=== PATIENT | male | born 1960 | race African-American/Black ===

== ENCOUNTER 2017-08-16 11:40 | Emergency (ER) | payer MEDICAID, OTHER ==
[~2017-08-16] VITALS: Ht 188 cm; Wt 95.0 kg
[~2017-08-16 11:40] MED LIST: ASPI-1158 PO; DIPHENHYDRAMINE PO; HYDR25TA PO; IBUPROFEN PO; LISI-604; SIMV20TA2 PO
[2017-08-16 12:34] VITALS: BP 139/84
[2017-08-16] MEDS ORDERED: ACETAMINOPHEN 325MG TABLET ONE (12:39)
[2017-08-17] MEDS ORDERED: AMLO10TA80 PO (23:52)
== END 2017-08-16 19:50 | disposition left against medical advice (07) ==
LOC: ER 12:36
DX: R05 Cough (principal); Z53.21 Procedure and treatment not carried out due to patient leaving prior to being seen by health care provider

== ENCOUNTER 2017-08-17 08:41 | Inpatient (IN) | payer MEDICAID ==
[~2017-08-17] VITALS: Ht 188 cm; Wt 95.3 kg
[2017-08-17] MEDS ORDERED: ACETAMINOPHEN 325MG TABLET ONE (09:04)
[2017-08-17] MEDS ORDERED: LORAZEPAM 2MG/ML CPJ IV ONE (09:45)
[2017-08-17] MEDS ORDERED: KETOROLAC 30MG/ML VIAL IV ONE (09:45)
[2017-08-17] MEDS ORDERED: ONDANSETRON HCL 4MG/2ML VIAL IV ONE (09:45)
[2017-08-17] MEDS ORDERED: SODIUM CHLORIDE 0.9% 1000ML BAG (SEPSIS BOLUS) IV ONE (09:45)
[2017-08-17 10:11] LABS: HEMATOCRIT. 41.9 % (42.0-52.0); HEMOGLOBIN. 14.8 g/dL (14.0-18.0); MEAN CORPUSCULAR HEMOGLOBIN 31.5 pg (28.0-32.0); MEAN CORPUSCULAR VOLUME 89.1 fL (80.0-94.0); PLATELET 158 x1000/uL (130-400); RED CELL DISTRIBUTION WIDTH 14.1 % (11.6-14.6)
[2017-08-17 10:17] LABS: CLARITY URINE CLEAR (CLEAR); COLOR URINE DARK YELLOW (YELLOW); KETONES URINE TRACE (NEGATIVE); LEUKOCYTE ESTERASE URINE NEGATIVE (NEGATIVE); NITRITE URINE NEGATIVE (NEGATIVE); OCCULT BLOOD URINE TRACE (NEGATIVE); PROTEIN URINE 2+ (NEGATIVE); SPECIFIC GRAVITY URINE 1.024 (1.005-1.030)
[2017-08-17 10:17] LABS: CHLORIDE 97 mEq/L (98-107)
[2017-08-17 10:19] LABS: PROTHROMBIN TIME 10.7 sec (9.4-11.6)
[2017-08-17 10:22] LABS: ETHANOL BLOOD < 10 mg/dL
[2017-08-17 10:49] LABS: *AMPHETAMINES SCREEN URINE NEGATIVE (NEGATIVE); *BARBITURATES SCREEN URINE NEGATIVE (NEGATIVE); *BENZODIAZEPINES SCREEN URINE NEGATIVE (NEGATIVE); *COCAINE SCREEN URINE NEGATIVE (NEGATIVE); METHADONE URINE SCREEN NEGATIVE (NEGATIVE); OPIATES URINE SCREEN NEGATIVE (NEGATIVE)
[2017-08-17 10:50] LABS: CANNABINOID URINE SCREEN NEGATIVE (NEGATIVE); PHENCYCLIDINE URINE SCREEN NEGATIVE (NEGATIVE)
[2017-08-17 10:54] LABS: PLATELET ESTIMATE NORMAL
[2017-08-17] MEDS ORDERED: AZITHROMYCIN 500 MG in DEXT 5% WATER 250 ML IV SCH (11:15)
[2017-08-17] MEDS ORDERED: CEFTRIAXONE 1 G PREMIX 50 ML IV ONE (11:15)
[2017-08-17] MEDS ORDERED: LORAZEPAM 2MG/ML CPJ IV PRN (12:00)
[2017-08-17] MEDS ORDERED: MORPHINE SULFATE 4 MG/ML CPJ (NOT FOR IM USE) IV PRN (12:00)
[2017-08-17] MEDS ORDERED: CLONIDINE 0.1MG TABLET PO PRN (12:00)
[2017-08-17 13:16] LABS: CHLORIDE 98 mEq/L (98-107)
[2017-08-17 13:20] LABS: CREATINE KINASE 146 IU/L (39-308); CREATINE KINASE MB FRACTION < 0.5 ng/mL (0.5-3.6); TROPONIN I < 0.02 ng/mL (0.00-0.04)
[2017-08-17] MEDS: LORAZEPAM 0.5MG TABLET PO PRN (17:02)
[2017-08-17] MEDS ORDERED: ONDANSETRON HCL 4MG/2ML VIAL IV PRN (20:00)
[2017-08-17] MEDS ORDERED: HYDROCODONE/ACETAMINOPHEN 5/325MG TABLET PO PRN (20:00)
[2017-08-17] MEDS ORDERED: DOCUSATE SODIUM 100MG CAPSULE PO PRN (20:00)
[2017-08-17] MEDS ORDERED: IPRATROPIUM/ALBUTEROL 0.5-3(2.5)MG/3ML NEB INH PRN (20:00)
[2017-08-17] MEDS ORDERED: MAGNESIUM/ALUMINUM HYDROXIDE/SIMETHICONE 30ML UDC PO PRN (20:00)
[2017-08-17] MEDS ORDERED: GUAIFENESIN 200MG/10ML SUGAR FREE UDC PO PRN (20:00)
[2017-08-17] MEDS ORDERED: NA PHOS,M-B/NA PHOS,DI-BA ENEMA 118ML PR PRN (20:00)
[2017-08-17 21:30] VITALS: BP 132/84
[2017-08-17 22:00] VITALS: BP 132/84
[2017-08-17] MEDS ORDERED: SODIUM CHLORIDE 0.45% 1,000 ML IV SCH (23:00)
[2017-08-17] MEDS ORDERED: AMLO10TA80 PO (23:52)
[2017-08-18] VITALS: BP 105/66
[2017-08-18] MEDS: ACETAMINOPHEN 325MG TABLET PO PRN ×3 (00:39→20:40)
[2017-08-18] MEDS: LEVOFLOXACIN 500MG PREMIX 100 ML IV SCH (01:39)
[2017-08-18 04:00] VITALS: BP 108/71
[2017-08-18] MEDS: LORAZEPAM 0.5MG TABLET PO PRN (06:29)
[2017-08-18 07:35] LABS: BASOPHILS % 0.3 % (0.0-2.0); EOSINOPHILS % 0.1 % (0.0-5.0); HEMATOCRIT. 41.5 % (42.0-52.0); HEMOGLOBIN. 14.4 g/dL (14.0-18.0); LYMPHOCYTES % 14.9 % (20.0-50.0); MEAN CORPUSCULAR HEMOGLOBIN 31.3 pg (28.0-32.0); MEAN CORPUSCULAR VOLUME 90.1 fL (80.0-94.0); MEAN PLATELET VOLUME 7.5 fl (7.4-10.4); MONOCYTES % 6.3 % (2.0-8.0); NEUTROPHILS % 78.4 % (40.0-76.0); PLATELET 158 x1000/uL (130-400)
[2017-08-18 08:00] VITALS: BP 109/66
[2017-08-18 08:18] LABS: CHLORIDE 99 mEq/L (98-107)
[2017-08-18 08:35] LABS: HDL CHOLESTEROL 30 mg/dL (40-59); LDL CHOLESTEROL 47 mg/dL (5-100)
[2017-08-18] MEDS: ASPIRIN 81MG EC TABLET PO SCH (08:48)
[2017-08-18] MEDS: ENOXAPARIN 40MG/0.4ML SYR SUBCUT SCH (08:48)
[2017-08-18] MEDS: HYDROCHLOROTHIAZIDE 25MG TABLET PO SCH (08:52)
[2017-08-18] MEDS: AMLODIPINE 10MG TABLET PO SCH (08:52)
[2017-08-18] MEDS ORDERED: IBUPROFEN PO SCH (09:00)
[2017-08-18] MEDS ORDERED: MEDICATION NOT ON FORMULARY EA (Simvastatin (Zocor) 20 MG) PO SCH (09:00)
[2017-08-18] MEDS ORDERED: POTASSIUM CHLORIDE 20MEQ TABLET SR PO NR ×2 (10:00→15:52)
[2017-08-18] MEDS ORDERED: LORAZEPAM 2MG/ML CPJ IV PRN (10:15)
[2017-08-18] MEDS ORDERED: CHLORDIAZEPOXIDE 25MG CAPSULE PO PRN (10:15)
[2017-08-18] MEDS ORDERED: LEVOFLOXACIN 500MG PREMIX 100 ML IV SCH ×2 (10:30)
[2017-08-18] MEDS ORDERED: DIPHENHYDRAMINE 25MG CAPSULE PO PRN (11:00)
[2017-08-18 12:00] VITALS: BP 110/67
[2017-08-18] MEDS ORDERED: FOLIC ACID 1 MG, THIAMINE HCL 100 MG, MVI, ADULT NO.1 10 ML in DEXTROSE 5% WATER 1,000 ML IV SCH ×4 (12:00)
[2017-08-18 16:00] VITALS: BP 102/66
[2017-08-18 20:00] VITALS: BP 107/68
[2017-08-18] MEDS: ATORVASTATIN CALCIUM 10MG TABLET PO SCH (20:39)
[2017-08-18] MEDS: GUAIFENESIN 600MG ER TABLET PO SCH (20:39)
[2017-08-19] VITALS: BP 106/71
[2017-08-19] MEDS: LEVOFLOXACIN 500MG PREMIX 100 ML IV SCH (01:27)
[2017-08-19 04:00] VITALS: BP 106/85
[2017-08-19] MEDS: ACETAMINOPHEN 325MG TABLET PO PRN ×2 (04:48→15:58)
[2017-08-19 08:00] VITALS: BP 128/84
[2017-08-19 08:26] LABS: BASOPHILS % 0.3 % (0.0-2.0); EOSINOPHILS % 1.6 % (0.0-5.0); HEMATOCRIT. 38.5 % (42.0-52.0); HEMOGLOBIN. 13.2 g/dL (14.0-18.0); MEAN CORPUSCULAR HEMOGLOBIN 30.9 pg (28.0-32.0); MEAN CORPUSCULAR VOLUME 90.6 fL (80.0-94.0); MEAN PLATELET VOLUME 7.6 fl (7.4-10.4); MONOCYTES % 10.9 % (2.0-8.0); NEUTROPHILS % 70.2 % (40.0-76.0); PLATELET 171 x1000/uL (130-400); RED BLOOD CELL COUNT 4.25 mill/uL (4.7-6.1); RED CELL DISTRIBUTION WIDTH 14.2 % (11.6-14.6)
[2017-08-19] MEDS: ASPIRIN 81MG EC TABLET PO SCH (08:54)
[2017-08-19] MEDS: GUAIFENESIN 600MG ER TABLET PO SCH ×2 (08:55→21:12)
[2017-08-19] MEDS: FOLIC ACID 1MG TABLET PO SCH (08:55)
[2017-08-19] MEDS: MULTIVITAMINS,THER W-MINERALS TABLET PO SCH (08:55)
[2017-08-19] MEDS: THIAMINE HCL 100MG TABLET PO SCH (08:55)
[2017-08-19] MEDS: AMLODIPINE 10MG TABLET PO SCH (08:56)
[2017-08-19] MEDS: ENOXAPARIN 40MG/0.4ML SYR SUBCUT SCH (08:56)
[2017-08-19] MEDS: HYDROCHLOROTHIAZIDE 25MG TABLET PO SCH (08:56)
[2017-08-19 08:59] LABS: CHLORIDE 100 mEq/L (98-107)
[2017-08-19 12:00] VITALS: BP 120/75
[2017-08-19] MEDS: DIPHENHYDRAMINE 50MG/ML VIAL IV PRN (15:59)
[2017-08-19 16:00] VITALS: BP 109/72
[2017-08-19] MEDS: METRONIDAZOLE 500 MG PREMIX 100 ML IV SCH (18:10)
[2017-08-19 20:00] VITALS: BP 109/69
[2017-08-19] MEDS: ATORVASTATIN CALCIUM 10MG TABLET PO SCH (21:12)
[2017-08-20] VITALS: BP 102/63
[2017-08-20] MEDS: LEVOFLOXACIN 500MG PREMIX 100 ML IV SCH (02:02)
[2017-08-20] MEDS: METRONIDAZOLE 500 MG PREMIX 100 ML IV SCH ×2 (02:47→10:51)
[2017-08-20] MEDS: DIPHENHYDRAMINE 50MG/ML VIAL IV PRN (02:52)
[2017-08-20 04:00] VITALS: BP 110/69
[2017-08-20 08:00] VITALS: BP 105/73
[2017-08-20] MEDS: GUAIFENESIN 600MG ER TABLET PO SCH (09:28)
[2017-08-20] MEDS: THIAMINE HCL 100MG TABLET PO SCH (09:29)
[2017-08-20] MEDS: ASPIRIN 81MG EC TABLET PO SCH (09:29)
[2017-08-20] MEDS: MULTIVITAMINS,THER W-MINERALS TABLET PO SCH (09:29)
[2017-08-20] MEDS: FOLIC ACID 1MG TABLET PO SCH (09:29)
[2017-08-20] MEDS: AMLODIPINE 10MG TABLET PO SCH (09:30)
[2017-08-20] MEDS: ENOXAPARIN 40MG/0.4ML SYR SUBCUT SCH (09:30)
[2017-08-20] MEDS: HYDROCHLOROTHIAZIDE 25MG TABLET PO SCH (09:30)
[2017-08-20 12:00] VITALS: BP 108/67
[2017-08-20 12:30] VITALS: BP 108/67
== END 2017-08-20 13:50 | disposition home or self-care (01) | DRG 720 ==
LOC: ER 08:41 → 5WST 11:34 → ENRESERV 19:21
PROVIDERS: ADMIT Internal Medicine; ATTEND Internal Medicine
DX: A41.9 Sepsis, unspecified organism (principal); J96.00 Acute respiratory failure, unspecified whether with hypoxia or hypercapnia; J69.0 Pneumonitis due to inhalation of food and vomit; E44.0 Moderate protein-calorie malnutrition; E87.6 Hypokalemia; E86.0 Dehydration; E78.5 Hyperlipidemia, unspecified; F10.239 Alcohol dependence with withdrawal, unspecified; I10 Essential (primary) hypertension; T51.0X1A Toxic effect of ethanol, accidental (unintentional), initial encounter; Y92.89 Other specified places as the place of occurrence of the external cause; Z68.27 Body mass index [BMI] 27.0-27.9, adult; Z88.8 Allergy status to other drugs, medicaments and biological substances
CPT/HCPCS: 36415; 71045; 80048; 80053; 80061; 80305; 81003; 82550; 82553; 82962; 83605; 83735; 83880; 84484; 85025; 85610; 87040; 87804; 93005; 96365; 96375; 99285; G0482; J0456; J0696; J1200; J1650; J1885; J1956; J2060; J2405; J3411; J3490; J7030; J7050; J7060; J7070

== ENCOUNTER 2022-10-17 08:14 | Emergency (ER) | payer MEDICAID ==
[~2022-10-17] VITALS: Ht 188 cm; Wt 94.0 kg
[~2022-10-17 08:14] MED LIST changes: +AMLO10TA80 PO; -ASPI-1158 PO; +ASPI-1406 PO; -DIPHENHYDRAMINE PO; -IBUPROFEN PO; -LISI-604; +SIMV-343 PO; -SIMV20TA2 PO
[2022-10-17] MEDS ORDERED: ACETAMINOPHEN 325MG TABLET PO ONE (09:00)
[2022-10-17] MEDS ORDERED: LIDOCAINE 5% PATCH TOP SCH (09:00)
[2022-10-17 09:08] LABS: BASOPHILS % 0.3 % (0.0-2.0); HEMATOCRIT. 48.1 % (42.0-52.0); HEMOGLOBIN. 16.6 g/dL (14.0-18.0); LYMPHOCYTES % 25.6 % (20.0-50.0); MEAN CORPUSCULAR HEMOGLOBIN 31.7 pg (28.0-32.0); MEAN CORPUSCULAR VOLUME 91.7 fL (80.0-94.0); MEAN PLATELET VOLUME 6.9 fl (7.4-10.4); MONOCYTES % 8.8 % (2.0-8.0); NEUTROPHILS % 58.3 % (40.0-76.0); PLATELET 197 x1000/uL (130-400); RED BLOOD CELL COUNT 5.25 mill/uL (4.7-6.1); RED CELL DISTRIBUTION WIDTH 13.8 % (11.6-14.6)
[2022-10-17 09:46] LABS: CHLORIDE 107 mEq/L (98-107)
[2022-10-17 10:35] VITALS: BP 138/78
[2022-10-17] MEDS ORDERED: GUAI600T26 MT (10:55)
[2022-10-17] MEDS ORDERED: ALBU6.7H3 INH (10:55)
[2022-10-17] MEDS ORDERED: ACET-2708 MT (10:55)
== END 2022-10-17 11:22 | disposition home or self-care (01) ==
LOC: ER 09:22
DX: R07.89 Other chest pain (principal); M25.551 Pain in right hip; J40 Bronchitis, not specified as acute or chronic; E11.9 Type 2 diabetes mellitus without complications; E78.00 Pure hypercholesterolemia, unspecified; I10 Essential (primary) hypertension; F17.210 Nicotine dependence, cigarettes, uncomplicated; Z88.8 Allergy status to other drugs, medicaments and biological substances; Z79.82 Long term (current) use of aspirin
CPT/HCPCS: 36415; 71045; 73502; 80053; 84484; 85025; 93005; 99285; 99406

== ENCOUNTER 2022-12-08 08:52 | Emergency (ER) | payer MEDICAID ==
[~2022-12-08] VITALS: Ht 188 cm; Wt 93.2 kg
[~2022-12-08 08:52] MED LIST changes: +ACET-2708 MT; +ALBU6.7H3 INH; +GUAI600T26 MT
[2022-12-08 09:08] VITALS: BP 116/81; PULSE 82; RESP 16; TEMP 98.1; O2SAT 98
[2022-12-08] MEDS ORDERED: MELO-105 MT (10:09)
== END 2022-12-08 10:36 | disposition home or self-care (01) ==
LOC: ER 08:52
DX: S39.011A Strain of muscle, fascia and tendon of abdomen, initial encounter (principal); Z88.8 Allergy status to other drugs, medicaments and biological substances; X58.XXXA Exposure to other specified factors, initial encounter; Y93.89 Activity, other specified; Y92.89 Other specified places as the place of occurrence of the external cause; Y99.8 Other external cause status
CPT/HCPCS: 99281

== ENCOUNTER 2024-01-07 10:31 | Inpatient (IN) | payer OTHER, MEDICAID ==
[~2024-01-07] VITALS: Ht 188 cm; Wt 92.7 kg
[~2024-01-07 10:31] MED LIST changes: +MELO-105 MT
[2024-01-07 11:09] LABS: BASOPHILS % 0.5 % (0.0-2.0); EOSINOPHILS % 8.7 % (0.0-5.0); HEMATOCRIT. 44.2 % (42.0-52.0); LYMPHOCYTES % 40.4 % (20.0-50.0); MEAN CORPUSCULAR HEMOGLOBIN 30.3 pg (28.0-32.0); MEAN PLATELET VOLUME 6.7 fl (7.4-10.4); MONOCYTES % 8.3 % (2.0-8.0); NEUTROPHILS % 42.1 % (40.0-76.0); PLATELET 187 x1000/uL (130-400); RED BLOOD CELL COUNT 4.97 mill/uL (4.7-6.1); RED CELL DISTRIBUTION WIDTH 14.8 % (11.6-14.6); WHITE BLOOD COUNT 3.8 x1000/uL (4.5-11.0)
[2024-01-07 11:21] LABS: CHLORIDE 107 mEq/L (98-107); POTASSIUM 3.3 mEq/L (3.5-5.1); SODIUM 139 mEq/L (136-145)
[2024-01-07 11:22] LABS: CALCIUM 9.8 mg/dL (8.7-10.4); CARBON DIOXIDE 27 mEq/L (21-32)
[2024-01-07 11:27] LABS: CREATININE 0.8 mg/dL (0.6-1.3); GLUCOSE 103 mg/dL (70-105); UREA NITROGEN BLOOD 8 mg/dL (9-23)
[2024-01-07 11:28] LABS: TROPONIN I HIGH SENSITIVITY 4 ng/L (3.0-53)
[2024-01-07 11:38] LABS: ETHANOL BLOOD < 10 mg/dL (<10)
[2024-01-07 11:53] LABS: CLARITY URINE CLEAR (CLEAR); COLOR URINE YELLOW (YELLOW); GLUCOSE URINE NEGATIVE (NEGATIVE); KETONES URINE NEGATIVE (NEGATIVE); LEUKOCYTE ESTERASE URINE NEGATIVE (NEGATIVE); NITRITE URINE NEGATIVE (NEGATIVE); OCCULT BLOOD URINE NEGATIVE (NEGATIVE); PH URINE 7.5 (4.5-8.0); PROTEIN URINE NEGATIVE (NEGATIVE); SPECIFIC GRAVITY URINE 1.016 (1.005-1.030)
[2024-01-07 12:15] LABS: *AMPHETAMINES SCREEN URINE NEGATIVE (NEGATIVE); *BARBITURATES SCREEN URINE NEGATIVE (NEGATIVE); *BENZODIAZEPINES SCREEN URINE NEGATIVE (NEGATIVE); *COCAINE SCREEN URINE NEGATIVE (NEGATIVE); CANNABINOID URINE SCREEN NEGATIVE (NEGATIVE); ECSTASY MDMA SCREEN URINE NEGATIVE (NEGATIVE); METHADONE URINE SCREEN NEGATIVE (NEGATIVE); OPIATES URINE SCREEN NEGATIVE (NEGATIVE); PHENCYCLIDINE URINE SCREEN NEGATIVE (NEGATIVE)
[2024-01-07] MEDS: IOHEXOL-350 100 ML BOTTLE ONE (13:50)
[2024-01-07] MEDS ORDERED: ACETAMINOPHEN 325MG TABLET PO PRN ×2 (14:00)
[2024-01-07] MEDS ORDERED: GUAIFENESIN 200MG/10ML SUGAR FREE UDC PO PRN (14:00)
[2024-01-07] MEDS ORDERED: DOCUSATE SODIUM 100MG CAPSULE PO PRN (14:00)
[2024-01-07] MEDS ORDERED: MAGNESIUM/ALUMINUM HYDROXIDE/SIMETHICONE 30ML UDC PO PRN (14:00)
[2024-01-07] MEDS ORDERED: IPRATROPIUM/ALBUTEROL 0.5-3(2.5)MG/3ML NEB HHN PRN (14:00)
[2024-01-07] MEDS ORDERED: CLONIDINE 0.1MG TABLET PO PRN (14:00)
[2024-01-07] MEDS ORDERED: ONDANSETRON HCL 4MG/2ML INJ IV PRN (14:00)
[2024-01-07] MEDS: AMLODIPINE 5MG TABLET PO NR (15:31)
[2024-01-07] MEDS: ASPIRIN 81MG TABLET PO SCH (15:31)
[2024-01-07] MEDS: CLOPIDOGREL 75MG TABLET PO SCH (15:32)
[2024-01-07] MEDS: POTASSIUM CHLORIDE 20MEQ TABLET SR PO NR (15:33)
[2024-01-07 15:47] LABS: TRIGLYCERIDE 70 mg/dL (0-150)
[2024-01-07 15:48] LABS: LDL CHOLESTEROL 97 mg/dL (5-100)
[2024-01-07 15:49] LABS: ALANINE AMINOTRANSFERASE 19 IU/L (10-49); ALBUMIN 4.6 g/dL (3.2-4.8); ASPARTATE AMINOTRANSFERASE 25 IU/L (<34); BILIRUBIN DIRECT 0.4 mg/dL (<=3.0); CHOLESTEROL 160 mg/dL (<200); HDL CHOLESTEROL 51 mg/dL (>55)
[2024-01-07 15:50] LABS: BILIRUBIN TOTAL 1.2 mg/dL (0.1-1.0); PROTEIN TOTAL 7.4 g/dL (6.0-8.3)
[2024-01-07 15:52] LABS: T4 FREE 0.97 ng/dL (0.89-1.76); THYROID STIMULATING HORMONE 0.33 uIU/mL (0.55-4.78)
[2024-01-07] MEDS ORDERED: IOHEXOL-350 100 ML BOTTLE ONE (18:51)
[2024-01-07] MEDS ORDERED: ATORVASTATIN CALCIUM 40MG TABLET PO SCH ×2 (21:00)
[2024-01-07] MEDS: ATORVASTATIN CALCIUM 40MG TABLET PO SCH (21:02)
[2024-01-08 06:34] LABS: BASOPHILS % 0.4 % (0.0-2.0); EOSINOPHILS % 9.1 % (0.0-5.0); HEMATOCRIT. 45.2 % (42.0-52.0); HEMOGLOBIN. 14.9 g/dL (14.0-18.0); MEAN CORPUSCULAR HGB CONC 33.1 g/dL (31.0-37.0); MEAN CORPUSCULAR VOLUME 90.8 fL (80.0-94.0); MONOCYTES % 10.1 % (2.0-8.0); NEUTROPHILS % 42.4 % (40.0-76.0); PLATELET 189 x1000/uL (130-400); RED BLOOD CELL COUNT 4.98 mill/uL (4.7-6.1); RED CELL DISTRIBUTION WIDTH 14.8 % (11.6-14.6); WHITE BLOOD COUNT 3.6 x1000/uL (4.5-11.0)
[2024-01-08 06:45] LABS: CARBON DIOXIDE 28 mEq/L (21-32); CHLORIDE 107 mEq/L (98-107); POTASSIUM 3.7 mEq/L (3.5-5.1); SODIUM 141 mEq/L (136-145)
[2024-01-08 06:46] LABS: CALCIUM 9.4 mg/dL (8.7-10.4)
[2024-01-08 06:51] LABS: CREATININE 0.9 mg/dL (0.6-1.3); GLUCOSE 206 mg/dL (70-105); UREA NITROGEN BLOOD 11 mg/dL (9-23)
[2024-01-08 09:00] VITALS: BP 118/73; PULSE 52; RESP 20; TEMP 36.3918; O2SAT 100
[2024-01-08] MEDS ORDERED: ASPIRIN 325MG EC TABLET PO SCH (09:00)
[2024-01-08] MEDS: HYDROCHLOROTHIAZIDE 25MG TABLET PO SCH (10:24)
[2024-01-08] MEDS: PANTOPRAZOLE SODIUM 40 MG/VIAL IV SCH (10:25)
[2024-01-08] MEDS: AMLODIPINE 10MG TABLET PO SCH (10:26)
[2024-01-08 10:47] VITALS: BP 118/73; PULSE 52; RESP 20; TEMP 36.418
[2024-01-08 12:00] VITALS: BP 127/85; PULSE 81; RESP 20; TEMP 36.78072; O2SAT 98
[2024-01-08] MEDS ORDERED: ATOR20TA65 PO (12:08)
[2024-01-08] MEDS ORDERED: MULT-1146 PO (12:08)
[2024-01-08] MEDS ORDERED: IBUP-2030 PO (12:08)
[2024-01-08] MEDS ORDERED: METF-873 PO (12:08)
[2024-01-08 14:45] LABS: HEPATITIS B SURFACE ANTIGEN NEGATIVE (Negative)
[2024-01-08 15:06] LABS: HEPATITIS C AB NON REACTIVE (Neg) (Negative)
[2024-01-08 20:00] VITALS: BP 112/68; PULSE 54; RESP 19; TEMP 36.28068; O2SAT 96
[2024-01-08 20:20] VITALS: BP 112/68; PULSE 54; RESP 19; TEMP 36.28068; O2SAT 96
[2024-01-09] VITALS: BP 107/75; PULSE 60; RESP 19; TEMP 36.16956; O2SAT 96
[2024-01-09 04:00] VITALS: BP 107/66; PULSE 53; RESP 16; TEMP 36.16956; O2SAT 97
[2024-01-09 04:48] VITALS: BP 107/66; PULSE 53; RESP 16; TEMP 36.16956; O2SAT 97
[2024-01-09 08:00] VITALS: BP 122/76; PULSE 54; RESP 16; TEMP 36.50292; O2SAT 98
[2024-01-09] MEDS ORDERED: LIP40 PO (11:47)
[2024-01-09] MEDS ORDERED: LISI10TA26 MT (11:47)
[2024-01-09] MEDS ORDERED: CLOP-31 PO (11:47)
[2024-01-09] MEDS ORDERED: ASPI-1160 PO (11:47)
[2024-01-09] MEDS ORDERED: AMLO10TA80 PO (11:47)
[2024-01-09 12:00] VITALS: BP 119/78; PULSE 61; RESP 16; TEMP 36.16956; O2SAT 97
[2024-01-09 13:40] VITALS: BP 119/78; PULSE 61; TEMP 97.7; O2SAT 97
[2024-01-09] MEDS ORDERED: CARV12.545 MT (13:59)
[2024-01-09] MEDS ORDERED: LOSA25TA26 MT (13:59)
[2024-01-10] MEDS ORDERED: FAMOTIDINE 20MG/2ML VIAL IV SCH (09:00)
== END 2024-01-09 15:00 | disposition home health service (06) | DRG 46 ==
LOC: ER 10:31 → 5WST 12:43 → EDBEDREQ 12:45 → EDBEDREQSVC 12:45 → EDBEDREQTM 12:45 → 7WST 01-08 09:32
PROVIDERS: ADMIT Internal Medicine; ATTEND Internal Medicine
DX: I65.22 Occlusion and stenosis of left carotid artery (principal); D72.819 Decreased white blood cell count, unspecified; E11.9 Type 2 diabetes mellitus without complications; E78.00 Pure hypercholesterolemia, unspecified; E87.6 Hypokalemia; I10 Essential (primary) hypertension; F17.210 Nicotine dependence, cigarettes, uncomplicated; Z79.899 Other long term (current) drug therapy; Z79.84 Long term (current) use of oral hypoglycemic drugs
CPT/HCPCS: 36415; 70496; 70498; 70551; 71045; 80048; 80061; 80076; 80305; 80320; 81003; 82962; 83036; 84439; 84443; 84484; 85025; 86705; 87340; 93005; 93306; 93970; 99285; J2470; Q9967; G0480